=== PATIENT | female | born 1965 | race Hispanic/Latino ===

== ENCOUNTER → 2021-05-09 | Outpatient (CLI) | payer OTHER | END | disposition home or self-care (01) | LOC: RAH 09:42 | PROVIDERS: ATTEND Internal Medicine | DX: I48.0 Paroxysmal atrial fibrillation (principal) | CPT/HCPCS: 93306; 93356 ==

== ENCOUNTER 2021-10-26 05:49 | Day surgery (SDC) | payer OTHER ==
[2021-10-24 15:58] LABS: BASOPHILS % (AUTO) 0.9 % (0.0-5.0); EOSINOPHILS % (AUTO) 2.7 % (0.0-8.0); LYMPHOCYTES % (AUTO) 31.6 % (21.0-51.0); MEAN CORPUSCULAR HEMOGLOBIN 30.6 pg (27.0-33.0); MEAN CORPUSCULAR HGB CONC 34.1 g/dL (32.0-36.0); MEAN CORPUSCULAR VOLUME 89.7 fL (79-99); MONOCYTES % (AUTO) 8.5 % (3.0-13.0); NEUTROPHILS % (AUTO) 55.9 % (40.0-77.0); PLATELET COUNT (AUTO) 252 K/uL (130-400); RED BLOOD CELL COUNT(AUTO) 4.35 MIL/uL (4.00-5.50); RED CELL DISTRIBUTION WIDTH 12.7 % (11.0-15.5); WHITE BLOOD COUNT (AUTO) 8.1 K/uL (4.8-10.8)
[2021-10-24 16:09] LABS: INR 0.99 (0.85-1.15); PROTHROMBIN TIME 10.8 SEC (9.6-11.6)
[2021-10-24 16:10] LABS: PARTIAL THROMBOPLASTIN TIME 29.3 SEC (26.3-35.5)
[2021-10-24 16:12] LABS: CREATININE 0.7 mg/dL (0.5-1.5); POTASSIUM 4.3 mmol/L (3.5-5.1)
[2021-10-24 16:25] LABS: B-TYPE NATRIURETIC PEPTIDE 6 pg/mL (0-100)
[2021-10-25 10:11] VITALS: BP 150/83
[~2021-10-26] VITALS: Ht 157.5 cm; Wt 69.0 kg
[2021-10-26] VITALS (7 sets, daily range): BP systolic 111–128; BP diastolic 64–81
[~2021-10-26 05:49] MED LIST: 0.9% NACL 500ML IV.SOLN 500 ML IV SCH; APIX5TAB PO; DULO60CA64 PO; LISI40TA9 PO; METO-391 PO
[2021-10-26] MEDS ORDERED: 0.9%NACL 1000ML 1,000 ML IV ONE (06:52)
[2021-10-26] MEDS ORDERED: AMLO1TAB99 PO (07:02)
[2021-10-26] MEDS ORDERED: LIDOCAINE HCL 400MG/20ML VIAL ONE (07:35)
[2021-10-26] MEDS ORDERED: HEPARIN 10,000 UNIT/10ML (1,000 UNIT/ML) VIAL ONE (07:35)
[2021-10-26] MEDS ORDERED: MEPERIDINE-PF 25 MG/ML SYG ONE (08:01)
[2021-10-26] MEDS ORDERED: MIDAZOLAM HCL 1 MG/ML 2ML VIAL ONE (08:01)
[2021-10-26] MEDS ORDERED: ISOPROTERENOL HCL 0.2 MG/ML AMP/VIAL/BAG ONE (09:01)
[2021-10-26] MEDS ORDERED: PROP225C11 PO (10:21)
== END 2021-10-26 13:26 | disposition home or self-care (01) ==
LOC: DAH 05:49
PROVIDERS: ATTEND Internal Medicine Cardiovascular Disease
DX: I47.1 Supraventricular tachycardia (principal); F17.210 Nicotine dependence, cigarettes, uncomplicated; Z79.01 Long term (current) use of anticoagulants; Z79.899 Other long term (current) drug therapy; Z72.89 Other problems related to lifestyle
CPT/HCPCS: 36415; 80048; 83880; 85025; 85610; 85730; 93005; 93620; 93621; 93623; A4215; A4216; A4221; A4222; A4223 ×3; A4606; A4649 ×2; A4663; C1730 ×4; C1894 ×5; J1644; J2175; J2250; J3490 ×2; J7030 ×2; 99156; 99157

== ENCOUNTER 2023-05-19 23:57 | Inpatient (IN) | payer BC, OTHER ==
[~2023-05-19] VITALS: Ht 154.9 cm; Wt 78.5 kg
[~2023-05-19 23:57] MED LIST changes: -0.9% NACL 500ML IV.SOLN 500 ML IV SCH; +AMLO1TAB99 PO; +PROP225C11 PO
[2023-05-20] MEDS ORDERED: NOREPINEPHRIN 4MG/NS 250ML 250 ML IV ONE (00:25)
[2023-05-20] MEDS ORDERED: KETAMINE 50MG/ML SYRINGE 50 MG/ML DISP.SYRIN ONE ×2 (00:59→01:00)
[2023-05-20] MEDS ORDERED: AZITHROMYCIN 500MG+NS 250ML 250 ML ONE (01:37)
[2023-05-20] MEDS ORDERED: CEFTRIAXONE 2GM VIAL ONE (01:37)
[2023-05-20 10:18] LABS: ABG BASE EXCESS -10.9 mmol/L (-2.0-3.0); ABG HCO3 14.8 mmol/L (21.0-28.0); ABG OXYGEN SATURATION 92.2 % (95.0-99.0); ABG PCO2 32 mmHg (32-45); ABG PH 7.278 (7.35-7.450); CARBON MONOXIDE 2.4; HHb 7.6; PO2, ARTERIAL BG 72.9 mmHg (83.0-108.0); VENT MODE, BG NC (ROOM AIR)
[2023-05-20] MEDS ORDERED: 0.9%NACL 50ML IV SCH (10:39)
[2023-05-20] MEDS ORDERED: ZOSYN 3.375GM +NS 50ML IVPB SCH (11:00)
[2023-05-20] MEDS ORDERED: 0.9%NACL 1000ML 1,000 ML IV SCH (11:00)
[2023-05-20 11:15] VITALS: BP 115/68; PULSE 74; RESP 20
[2023-05-20 12:00] VITALS: O2SAT 96
[2023-05-20] MEDS ORDERED: AMLO-258 PO (14:12)
[2023-05-20] MEDS ORDERED: METO-391 PO (14:12)
[2023-05-20] MEDS ORDERED: METO-408 PO (14:13)
[2023-05-20] MEDS ORDERED: ROSU40TA21 PO (14:13)
[2023-05-20 14:27] LABS: SARS-CoV-2, RNA, NAAT NEGATIVE SARS CoV-2 (NEGATIVE)
[2023-05-20 14:30] LABS: INFLUENZA TYPE A NEGATIVE FOR TYPE A (NEGATIVE); INFLUENZA TYPE B NEGATIVE FOR TYPE B (NEGATIVE); INR 0.93 (0.85-1.15); PARTIAL THROMBOPLASTIN TIME 26.1 SEC (26.3-35.5); PROTHROMBIN TIME 10.7 SEC (9.6-11.6)
[2023-05-20] MEDS ORDERED: ACETAMINOPHEN 500 MG TABLET PO PRN (14:30)
[2023-05-20] MEDS ORDERED: LORAZEPAM 2 MG/ML 1 ML VIAL IVP PRN ×2 (14:30)
[2023-05-20] MEDS ORDERED: CHLORDIAZEPOXIDE HCL 25 MG CAP PO PRN ×2 (14:30)
[2023-05-20] MEDS ORDERED: PHARMACY COMMUNICATION MISC PRN (14:30)
[2023-05-20] MEDS ORDERED: PROMETHAZINE HCL 25 MG TABLET PO PRN (14:30)
[2023-05-20] MEDS ORDERED: ONDANSETRON 4MG INJ IV PRN (14:30)
[2023-05-20] MEDS ORDERED: THIAMINE HCL 100 MG, FOLIC ACID 1 MG, M.V.I. IV [ADULT] 10 ML in 0.9%NACL 1000ML 1,000 ML IV SCH (14:30)
[2023-05-20 14:33] LABS: POTASSIUM 4.4 mmol/L (3.5-5.1)
[2023-05-20 14:34] LABS: BILIRUBIN,TOTAL 0.1 mg/dL (0.2-1.0); CREATININE 1.2 mg/dL (0.5-1.5)
[2023-05-20 14:35] LABS: ALBUMIN 2.9 g/dL (3.5-5.0); TOTAL PROTEIN, SERUM 5.9 g/dL (6.0-8.3)
[2023-05-20 14:40] LABS: BASOPHILS # (AUTO) 0.09 K/uL (0.00-0.20); EOSINOPHILS # (AUTO) 0.21 K/uL (0.00-0.70); EOSINOPHILS % (AUTO) 2.4 % (0.0-8.0); HEMATOCRIT 33.6 % (36-48); IMMATURE GRANULOCYTE ABSOLUTE 0.06 K/uL (0-1); LYMPHOCYTES # (AUTO) 1.8 K/uL (1.0-4.8); LYMPHOCYTES % (AUTO) 20.4 % (21.0-51.0); MEAN CORPUSCULAR HEMOGLOBIN 29.9 pg (27.0-33.0); MEAN CORPUSCULAR HGB CONC 34.2 g/dL (32.0-36.0); MEAN CORPUSCULAR VOLUME 87.3 fL (79-99); MONOCYTES # (AUTO) 0.5 K/uL (0.1-1.0); NEUTROPHILS # (AUTO) 6.2 K/uL (1.8-7.7); NEUTROPHILS % (AUTO) 69.5 % (40.0-77.0); PLATELET COUNT (AUTO) 236 K/uL (130-400); RED BLOOD CELL COUNT(AUTO) 3.85 MIL/uL (4.00-5.50); RED CELL DISTRIBUTION WIDTH 13.3 % (11.0-15.5); WHITE BLOOD COUNT (AUTO) 8.8 K/uL (4.8-10.8)
[2023-05-20 14:43] LABS: ADD UA MICROSCOPIC YES; APPEARANCE,URINE CLEAR (CLEAR); BACTERIA,URINE None Seen /HPF (None Seen); BILIRUBIN,URINE SMALL mg/dL (NEGATIVE); COLOR,URINE YELLOW (YELLOW); GLUCOSE, URINE (UA) NEGATIVE (NEGATIVE); KETONES,URINE 15 mg/dL (NEGATIVE); LEUKOCYTE ESTERASE ,URINE TRACE Leu/uL (NEGATIVE); NITRATE,URINE NEGATIVE (NEGATIVE); OCCULT BLOOD,URINE NEGATIVE (NEGATIVE); PROTEIN,URINE 100 mg/dL (NEGATIVE); WBC,URINE None Seen /HPF (0-1)
[2023-05-20 14:44] LABS: AMPHET/METH SCREEN,URINE NEGATIVE (NEGATIVE); BARBITURATE SCREEN, URINE NEGATIVE (NEGATIVE); BENZODIAZEPINES SCREEN,URINE NEGATIVE (NEGATIVE); CANNABINOID SCREEN,URINE POSITIVE (NEGATIVE); COCAINE SCREEN,URINE NEGATIVE (NEGATIVE); MUCUS,URINE Moderate LPF (None Seen); SQUAMOUS EPITHELIAL CELL,UR Moderate /HPF (0-2)
[2023-05-20 14:45] LABS: OPIATE SCREEN,URINE NEGATIVE (NEGATIVE); PHENCYCLIDINE SCREEN,URINE NEGATIVE (NEGATIVE)
[2023-05-20] MEDS ORDERED: COMPOUND IV REFRIGERATED 1 EACH IVSOLN MISC PRN (15:30)
[2023-05-20 16:00] VITALS: BP 119/65; PULSE 69; RESP 20
[2023-05-21] MEDS ORDERED: NICOTINE 21 MG/ 24 HR PATCH TD SCH (09:00)
== END 2023-05-20 17:21 | disposition left against medical advice (07) | DRG 871 ==
LOC: EDH 23:57 → EDHIP 05-20 03:47 → 2DH 05-20 11:18
PROVIDERS: ADMIT Hospitalist; ATTEND Hospitalist
DX: A41.9 Sepsis, unspecified organism (principal); J18.9 Pneumonia, unspecified organism; R65.21 Severe sepsis with septic shock; E78.00 Pure hypercholesterolemia, unspecified; E11.9 Type 2 diabetes mellitus without complications; Z20.822 Contact with and (suspected) exposure to COVID-19; F10.129 Alcohol abuse with intoxication, unspecified; F17.210 Nicotine dependence, cigarettes, uncomplicated; I10 Essential (primary) hypertension; Y90.6 Blood alcohol level of 120-199 mg/100 ml; E86.1 Hypovolemia; Z86.73 Personal history of transient ischemic attack (TIA), and cerebral infarction without residual deficits; Z90.49 Acquired absence of other specified parts of digestive tract
CPT/HCPCS: 36415; 36600; 70450; 71045; 80053; 80305; 81001; 82140; 82435; 82803; 82947; 83605; 83735; 84132; 84295; 84484; 85018; 85025; 85610; 85730; 86850; 86900; 86901; 87635; 87804; G0378; J0456; J0696; J2543; J3411; J3490; J7030